=== PATIENT | male | born 1955 | race Two or more races ===

== ENCOUNTER 2017-08-23 07:09 | Day surgery (SDC) | payer OTHER ==
[~2017-08-23 07:09] MED LIST: Buffered Lidocaine 0.9% SYRIN* 5 ML/SYR SYRINGE INTRADERM ONE; Dexamethasone IV* 4 MG/ML 1 ML (4 MG) IV SLOW PU ONE; Famotidine IV* 10 MG/ML 2 ML (20 mg) IV ONE
[2017-08-23] MEDS ORDERED: Famotidine IV* 10 MG/ML 2 ML (20 mg) ONE (07:16)
[2017-08-23] MEDS ORDERED: Dexamethasone IV* 4 MG/ML 1 ML (4 MG) ONE (07:16)
[2017-08-23] MEDS ORDERED: ceFAZolin 2 GM PREMIX (*) 2 GM/50 ML BAG IVPB ONE (07:17)
[2017-08-23] MEDS ORDERED: Ketorolac INJ* 30 MG/ML 1 ML VIAL ONE (07:17)
[2017-08-23] MEDS ORDERED: Lidocaine 1% MPF wEPI 200,000* 30 ML SDV ONE (08:17)
[2017-08-23] MEDS ORDERED: Bupivacaine 0.5% PF 10 ML VIAL INJ ONE (08:17)
[2017-08-23] MEDS ORDERED: fentaNYL* 50 MCG/ML 2 ML VIAL (100 MCG VIAL) ONE (08:28)
[2017-08-23] MEDS ORDERED: Midazolam* 1 MG/ML 5 ML VIAL (5 MG) ONE (08:28)
[2017-08-23] MEDS ORDERED: fentaNYL* 50 MCG/ML 2 ML VIAL (100 MCG VIAL) IV PRN (08:29)
[2017-08-23] MEDS ORDERED: Ondansetron INJ* 2 MG/ML VIAL IV PRN (08:29)
[2017-08-23] MEDS ORDERED: oxyCODONE/Acetamin 5/325 MG* TAB PO PRN (08:29)
[2017-08-23] MEDS ORDERED: HYDROcodone/ACETAMIN 5-325 MG* 1 TAB PO PRN (08:29)
[2017-08-23] MEDS ORDERED: Naloxone* 0.4 MG/ML 1 ML VIAL IV PRN (08:29)
[2017-08-23] MEDS ORDERED: Propofol* 10 MG/ML 20 ML BTL IV PUSH ONE (08:38)
[2017-08-23] MEDS ORDERED: Lidocaine 2% PF * 5 ML VIAL ONE (08:38)
[2017-08-23 10:27] VITALS: BP 156/85
--- NOTE | 2017-08-23 14:08 | OP ---
CC: Lucio Cooper MD; Dr. Adrian Avelar OPERATIVE REPORT: DATE OF OPERATION: 08/23/17 DATE OF : 57 SURGEON: Lucio Cooper MD DRY WALL NAILER: None. ANESTHESIOLOGIST: Dr. Rosa. ANESTHESIA: LMAC anesthesia. PRE-OP DIAGNOSIS: Left inguinal hernia. POST-OP DIAGNOSIS: Left inguinal hernia. OPERATIVE PROCEDURE: Left inguinal hernia repair with mesh. DESCRIPTION OF PROCEDURE: The patient was supine on the operating table. After adequate intravenous sedation, compression stockings, Bell Hugger warmer, and intravenous antibiotics, the left groin was prepped and draped in a sterile fashion. Local infiltrative anesthesia was administered and approxi mately 5 cm incision was created. Dissection was carried down to the external oblique, which was ope bella in the direction of its fibers. Cord structures were encircled with a [place] drain, tented up[address] rd and indirect hernia sac was readily identified, dissected free, and reduced and the cone mesh plug was placed into the internal ring, sutured there with 2-0 Vicryl. A second piece of mesh was placed over the inguinal floor, sutured at the tubercle. Tails were split, brought around the cord structu res and tacked down laterally. External oblique was closed over top with 2- 0 Vicryl, Arminda's with 3-0 Vicryl, and skin with 4-0 Prolene, followed by sterile dressing. He tolerated the procedure well , was awakened and brought to recovery in good condition. No complications. No drains. No patholog ic specimen. Sponge and instrument counts were correct. Estimated blood loss was less than 10 mL. [id number]/[facility] #: [id number]
== END 2017-08-23 10:52 | disposition home or self-care (01) ==
LOC: OR 07:09
PROVIDERS: ATTEND Surgery
DX: K40.90 Unilateral inguinal hernia, without obstruction or gangrene, not specified as recurrent (principal); Z72.0 Tobacco use
CPT/HCPCS: C1781; J0690; J1100; J1885; J2001; J2250; J2704; J3010

== ENCOUNTER 2021-07-14 10:15 | Observation (INO) ==
[~2021-07-14 10:15] MED LIST changes: -Buffered Lidocaine 0.9% SYRIN* 5 ML/SYR SYRINGE INTRADERM ONE; +Buffered Lidocaine 1% SYRIN 1 ml INTRADERM ONE; -Dexamethasone IV* 4 MG/ML 1 ML (4 MG) IV SLOW PU ONE; -Famotidine IV* 10 MG/ML 2 ML (20 mg) IV ONE; +Lactated Ringers 1000 ml BAG 1,000 ML IV SCH
[2021-07-14] MEDS ORDERED: ceFAZolin 2 GM in NS PREMIX 2 GM/100 ML BAG IVPB ONE (11:10)
[2021-07-14 11:38] LABS: INR 1.09 (0.86-1.15)
[2021-07-14] MEDS ORDERED: Dexamethasone IV 4 MG/ML VIAL 1 ml VIAL ONE (11:41)
[2021-07-14] MEDS ORDERED: Phenylephrine IV 10 MG/ML 1 ml VIAL ONE (11:41)
[2021-07-14] MEDS ORDERED: Midazolam 2 mg/2 ml VIAL 1 mg/ml 2 ml VIAL (2 mg) ONE (11:41)
[2021-07-14] MEDS ORDERED: Ondansetron 4 mg VIAL 2 MG/ML 2 ml VIAL ONE (11:41)
[2021-07-14] MEDS ORDERED: fentaNYL 100 mcg/2 ml 50 MCG/ML VIAL ONE (11:41)
[2021-07-14] MEDS ORDERED: Acetaminophen IV 1 GM/100ML 100 ML IV ONE (11:41)
[2021-07-14] MEDS ORDERED: Lactulose 30 ml UDC PO PRN (13:29)
[2021-07-14] MEDS ORDERED: Morphine 2 MG/ML SYRINGE IV PRN (13:29)
[2021-07-14] MEDS ORDERED: Ondansetron ODT 4 mg TAB 4 MG TAB PO PRN (13:29)
[2021-07-14] MEDS ORDERED: Ondansetron 4 mg VIAL 2 MG/ML 2 ml VIAL IV PRN (13:29)
[2021-07-14] MEDS ORDERED: Magnesium Hydroxide LIQ 30 ML UDC PO PRN (13:29)
[2021-07-14] MEDS ORDERED: EPHEDrine (Pressors) 50 MG/ML VIAL ONE (13:30)
[2021-07-14] MEDS ORDERED: Propofol 10 MG/ML 20 ML BTL ONE ×2 (14:16)
[2021-07-14] MEDS ORDERED: Naloxone 0.4 mg VIAL 0.4 mg/ml 1 ml VIAL IV PRN (15:01)
[2021-07-14] MEDS ORDERED: HYDROmorphone 1 MG/1 ML SYRINGE IV PRN (15:01)
[2021-07-14] MEDS: Lactated Ringers 1000 ml BAG 1,000 ML IV SCH (17:35)
[2021-07-14] MEDS: Magnesium Hydroxide LIQ 30 ML UDC PO SCH (21:24)
[2021-07-14] MEDS: ceFAZolin 1 GM ADVAN 1 GM in NS 0.9% 50 ML 50 ML IVPB SCH (23:46)
[2021-07-15] MEDS: Lactated Ringers 1000 ml BAG 1,000 ML IV SCH (03:29)
[2021-07-15 06:10] LABS: Hematocrit 39 % (42-52); Hemoglobin 13.1 g/dL (14.0-18.0); Mean Platelet Volume 9.9 fL (7.4-10.4); Platelet Count 175 10^3/uL (150-450)
[2021-07-15 06:28] LABS: Calcium 8.9 mg/dL (8.6-10.3); Potassium 4.1 mmol/L (3.5-5.0); eGFR CKD-EPI 99.2 (>60)
[2021-07-15] MEDS: ceFAZolin 1 GM ADVAN 1 GM in NS 0.9% 50 ML 50 ML IVPB SCH (07:38)
[2021-07-15] MEDS ORDERED: Vitamin THERAPEUTIC TAB PO SCH (09:00)
[2021-07-15] MEDS: Magnesium Hydroxide LIQ 30 ML UDC PO SCH ×2 (09:19→09:24)
[2021-07-15 11:18] VITALS: BP 111/75
== END 2021-07-15 13:30 | disposition home or self-care (01) ==
LOC: SSU 10:15 → OR 10:15
PROVIDERS: ADMIT Orthopaedic Surgery Adult Reconstructive Orthopaedic Surgery; ATTEND Orthopaedic Surgery Adult Reconstructive Orthopaedic Surgery

== ENCOUNTER 2023-07-17 05:55 | Observation (INO) ==
[~2023-07-17 05:55] MED LIST changes: -Buffered Lidocaine 1% SYRIN 1 ml INTRADERM ONE; -Lactated Ringers 1000 ml BAG 1,000 ML IV SCH; +Naloxone 0.4 mg VIAL 0.4 mg/ml 1 ml VIAL IV PRN; +Ondansetron 4 mg VIAL 2 MG/ML 2 ml VIAL IV PRN; +fentaNYL 100 mcg/2 ml 50 MCG/ML VIAL IV PRN
[2023-07-17] MEDS ORDERED: ceFAZolin 2 GM PREMIX 2 GM/50 ML BAG ONE (06:15)
[2023-07-17] MEDS ORDERED: Tranexamic Acid 1 GM/100ML BAG 2,000 MG/200 ML BAG IV ONE (06:15)
[2023-07-17] MEDS: Buffered Lidocaine 1% SYRIN 1 ml INTRADERM ONE (06:35)
[2023-07-17] MEDS: Lactated Ringers 1000 ml BAG 1,000 ML IV SCH ×2 (06:35→12:15)
[2023-07-17 06:48] LABS: Rapid COVID-19 Molecular Undetected (Undetected)
[2023-07-17] MEDS ORDERED: Propofol 10 MG/ML 20 ML BTL ONE (07:02)
[2023-07-17] MEDS ORDERED: Midazolam 2 mg/2 ml VIAL 1 mg/ml 2 ml VIAL (2 mg) ONE (07:02)
[2023-07-17] MEDS ORDERED: Lidocaine 2% PF 5 ML VIAL ONE (07:02)
[2023-07-17] MEDS ORDERED: fentaNYL 100 mcg/2 ml 50 MCG/ML VIAL ONE (07:02)
[2023-07-17] MEDS ORDERED: ROPIVACAINE 5 MG/ML 30 ML BTL (0.5%) ONE (07:11)
[2023-07-17] MEDS ORDERED: Phenylephrine 40 mcg/mL 10mL (400mcg) SYRINGE ONE (08:50)
[2023-07-17] MEDS ORDERED: Phenylephrine IV 10 MG/ML 1 ml VIAL ONE (08:50)
[2023-07-17] MEDS ORDERED: Ondansetron 4 mg VIAL 2 MG/ML 2 ml VIAL IV PRN (10:23)
[2023-07-17] MEDS ORDERED: Calcium Carb (TUMS) 500 mg CHEW TAB PO PRN (10:23)
[2023-07-17] MEDS ORDERED: Morphine 2 MG/ML SYRINGE IV PRN (10:23)
[2023-07-17] MEDS ORDERED: Lactulose 30 ml UDC PO PRN (10:23)
[2023-07-17] MEDS ORDERED: Ondansetron ODT 4 mg TAB 4 MG TAB PO PRN (10:23)
[2023-07-17] MEDS ORDERED: Magnesium Hydroxide LIQ 30 ML UDC PO PRN (10:23)
[2023-07-17] MEDS: ceFAZolin 2 GM PREMIX 2 GM/50 ML BAG IVPB SCH (16:50)
[2023-07-17] MEDS: Acetaminophen IV 1 GM/100ML 1,000 MG/100 ML BAG IV ONE (17:29)
[2023-07-17] MEDS: Magnesium Hydroxide LIQ 30 ML UDC PO SCH (21:25)
[2023-07-18 06:41] LABS: Hematocrit 40.4 % (38-53); Hemoglobin 13.8 g/dL (13.2-16.3); Mean Platelet Volume 10.1 fL (7.5-11.2); Platelet Count 198 10^3/uL (150-450)
[2023-07-18 08:03] LABS: Calcium 9.1 mg/dL (8.6-10.3); Creatinine, Serum 0.68 mg/dL (0.67-1.17); Potassium 4.1 mmol/L (3.5-5.0); eGFR CKD-EPI 102.5 (>60)
[2023-07-18] MEDS: Vitamin THERAPEUTIC TAB PO SCH (08:31)
[2023-07-18 09:48] VITALS: BP 133/87
== END 2023-07-18 10:45 | disposition home or self-care (01) ==
LOC: SSU 05:55 → OR 05:55
PROVIDERS: ADMIT Orthopaedic Surgery Adult Reconstructive Orthopaedic Surgery; ATTEND Orthopaedic Surgery Adult Reconstructive Orthopaedic Surgery